=== PATIENT | female | born 1960 | race Caucasian/White ===

== ENCOUNTER 2019-09-18 14:17 | Emergency (ER) | payer OTHER ==
[~2019-09-18] VITALS: Ht 160 cm; Wt 68.0 kg
--- NOTE | 2019-09-18 14:20 | NUR ---
Pt placed in bed 4. pt is ambulatory and walked into the ER today.
--- NOTE | 2019-09-18 14:21 | NUR ---
MD Blanco at bedside.
[2019-09-18 14:30] VITALS: BP_SYST 129
[2019-09-18] MEDS ORDERED: NACL 0.9% 1,000 ML IV ONE (14:30)
[2019-09-18] MEDS ORDERED: MORPHINE 4 MG/ML INJ. SYRINGE IVP ONE (14:30)
[2019-09-18] MEDS ORDERED: ONDANSETRON HCL 4 MG/2 ML VIAL IVP ONE (14:30)
[2019-09-18 15:14] LABS: MONOCYTES # (AUTO) 0.6 K/uL (0.0-1.0); NEUTROPHILS # (AUTO) 5.8 K/uL (1.8-7.7); RED BLOOD CELL COUNT(AUTO) 5.16 MIL/uL (4.2-6.2)
[2019-09-18 15:25] LABS: BASOPHILS % (AUTO) 0.5 % (0.0-2.0); EOSINOPHILS % (AUTO) 0.3 % (0.0-4.0); HEMATOCRIT 46.4 % (36-48); HEMOGLOBIN 15.9 g/dL (12.0-16.0); LYMPHOCYTES # (AUTO) 2.5 K/uL (1.0-5.5); LYMPHOCYTES % (AUTO) 27.6 % (20.5-51.5); MEAN CORPUSCULAR HEMOGLOBIN 31 pg (27-31); MEAN CORPUSCULAR HGB CONC 34 % (32-36); MEAN CORPUSCULAR VOLUME 90 fL (79.0-98.0); MONOCYTES % (AUTO) 6.8 % (1.7-9.3); NEUTROPHILS % (AUTO) 64.8 % (40.0-70.0); PLATELET COUNT (AUTO) 266 K/uL (130-430)
[2019-09-18] MEDS ORDERED: KETOROLAC TROMETHAMINE 30 MG VIAL IVP ONE (15:30)
--- NOTE | 2019-09-18 15:41 | NUR ---
Pain medications given. pt lying in bed. HR 50. pt is otherwise stable.
[2019-09-18 15:45] LABS: CALCIUM 9.2 mg/dL (8.4-11.0); CREATININE 0.92 mg/dL (0.55-1.30); POTASSIUM 3.9 mmol/L (3.5-5.1)
[2019-09-18] MEDS ORDERED: KETOROLAC TROMETHAMINE 30 MG VIAL ONE (15:47)
[2019-09-18 15:53] LABS: ALBUMIN 4.1 g/dL (3.4-4.8); TOTAL BILIRUBIN 0.5 mg/dL (0.0-1.0)
[2019-09-18] MEDS ORDERED: ENOXAPARIN SODIUM 60 MG/0.6 ML SYRINGE SUBCUT SCH (16:15)
[2019-09-18] MEDS ORDERED: ENOXAPARIN SODIUM 60 MG/0.6 ML SYRINGE SUBCUT ONE (16:15)
[2019-09-18] MEDS ORDERED: ASPIRIN 325 MG TABLET (ECOTRIN) PO ONE (16:15)
--- NOTE | 2019-09-18 16:17 | NUR ---
pt will be admitted to telemetry. noted
[2019-09-18] MEDS ORDERED: MORPHINE 2 MG/ML INJ. SYRINGE IVP PRN (17:00)
[2019-09-18] MEDS ORDERED: ACETAMINOPHEN 325 MG TABLET PO PRN (17:00)
[2019-09-18] MEDS ORDERED: MORPHINE 4 MG/ML INJ. SYRINGE IVP PRN (17:00)
[2019-09-18] MEDS ORDERED: TEMAZEPAM 15 MG CAPSULE PO PRN (17:15)
[2019-09-18] MEDS ORDERED: ONDANSETRON HCL 4 MG/2 ML VIAL IVP PRN (17:15)
[2019-09-18] MEDS ORDERED: LORazepam 2 MG/ML VIAL IVP ONE (17:45)
[2019-09-18] MEDS ORDERED: MORPHINE 2 MG/ML INJ. SYRINGE IVP ONE (17:45)
--- NOTE | 2019-09-18 17:55 | NUR ---
Patient to be transferred to [facility] 911. Is being transferred due to higher level of care. Receiving facility has accepting physician PA and available space. ER physician has signed transfer form. Patient or responsible green party has agreed to transfer and signed form. Patient belongings inventoried and will be sent with patient. Copy of nursing notes, lab reports, EKG, Physicians Orders and X-rays to be sent with patient. Report called to at receiving facility. Receiving physician is Gustavo. ambulance service has been called for transfer. ETA is 7 minutes.
[2019-09-18 17:56] VITALS: BP_SYST 128
[2019-09-19] MEDS ORDERED: PANTOPRAZOLE SODIUM 40 MG TAB PO SCH ×2 (09:00)
[2019-09-19] MEDS ORDERED: ASPIRIN 81 MG TABLET(ECOTRIN) PO SCH (09:00)
== END 2019-09-18 17:56 | disposition short-term general hospital (02) ==
LOC: SED 14:17
DX: I21.29 ST elevation (STEMI) myocardial infarction involving other sites (principal); Z88.1 Allergy status to other antibiotic agents
CPT/HCPCS: 36415; 71045; 80053; 83036; 84484; 85025; 85379; 93005; 96372; 96374; 96375; 96376; 99285; J1650; J1885; J2060; J2270 ×2; J2405

== ENCOUNTER 2019-10-08 16:41 | Inpatient (IN) | payer OTHER ==
[~2019-10-08] VITALS: Ht 160 cm; Wt 67.6 kg
[2019-10-08 16:41] VITALS: BP_SYST 128
--- NOTE | 2019-10-08 16:41 | NUR ---
Patient triaged and placed in waiting room. VSS and patient appears in no acute distress at this time. Accompanied by FAMILY, awaiting available bed, and MD notified of need for MSE.
[2019-10-08] MEDS ORDERED: MORPHINE 4 MG/ML INJ. SYRINGE IVP ONE (16:53)
[2019-10-08] MEDS ORDERED: NITROGLYCERIN 1 INCH (GM) OINT. TP ONE (16:53)
[2019-10-08 17:34] LABS: BASOPHILS # (AUTO) 0.1 K/uL (0.0-0.2); BASOPHILS % (AUTO) 0.7 % (0.0-2.0); EOSINOPHILS # (AUTO) 0.1 K/uL (0.0-0.4); EOSINOPHILS % (AUTO) 0.7 % (0.0-4.0); HEMATOCRIT 41.2 % (36-48); HEMOGLOBIN 14.1 g/dL (12.0-16.0); LYMPHOCYTES # (AUTO) 1.1 K/uL (1.0-5.5); LYMPHOCYTES % (AUTO) 11.3 % (20.5-51.5); MEAN CORPUSCULAR HEMOGLOBIN 31 pg (27-31); MEAN CORPUSCULAR HGB CONC 34 % (32-36); MEAN CORPUSCULAR VOLUME 91 fL (79.0-98.0); MONOCYTES # (AUTO) 0.5 K/uL (0.0-1.0); MONOCYTES % (AUTO) 5.5 % (1.7-9.3); NEUTROPHILS # (AUTO) 7.7 K/uL (1.8-7.7); NEUTROPHILS % (AUTO) 81.8 % (40.0-70.0); PLATELET COUNT (AUTO) 250 K/uL (130-430); RED BLOOD CELL COUNT(AUTO) 4.54 MIL/uL (4.2-6.2); WHITE BLOOD COUNT (AUTO) 9.4 K/uL (4.8-10.8)
[2019-10-08 17:37] LABS: CALCIUM 9.7 mg/dL (8.4-11.0); CREATININE 0.8 mg/dL (0.55-1.30); POTASSIUM 4.3 mmol/L (3.5-5.1)
[2019-10-08 17:43] LABS: TOTAL BILIRUBIN 0.4 mg/dL (0.0-1.0)
--- NOTE | 2019-10-08 18:00 | NUR ---
ER at bedside examining patient.
[2019-10-08] MEDS ORDERED: ONDANSETRON HCL 4 MG/2 ML VIAL IVP ONE ×2 (18:30→20:15)
--- NOTE | 2019-10-08 18:42 | NUR ---
IV access placed into the left ac in 2 attempts with 22g. Medications given as ordered. pt stated she felt her HR was low and was monitoring it at home. pt recently had a stent placed and is here to check on her HR. pt c/o dizziness and nausea
--- NOTE | 2019-10-08 18:46 | NUR ---
Nitroglycerin held via MD Rehman verbal order, since pt is not having any chest pain.
--- NOTE | 2019-10-08 19:24 | NUR ---
Report to overnight caregiver RN. pt is feeling better she stated. stable on VS>Hr at 55
--- NOTE | 2019-10-08 20:10 | NUR ---
Pt c/o nausea. Dr. Rehman notified.
--- NOTE | 2019-10-08 20:25 | NUR ---
Admit orders received from Dr. Leonel Tobias. Pt informed of POC and she states that she doesn't want to be admitted for 2 or more days. Pt states that she needs time to think about it. Dr. Tobias to be notified.
--- NOTE | 2019-10-08 20:50 | NUR ---
Spoke with Dr. Tobias to inform about pt.'s request to be admitted only as Tele OBs and have ECHO done in AM. Per Dr. Tobias, pt may not be admitted under OBs status. Pt informed and states "I need to think about it."
--- NOTE | 2019-10-08 21:15 | NUR ---
Charge nurse speaks with pt. Pt decides to follow through with Tele admit and POC per Dr. Tobias.
[2019-10-08] MEDS ORDERED: *LOVENOX 1MG/KG Q12H/PHARMACY XX SCH (21:45)
--- NOTE | 2019-10-08 21:58 | NUR ---
Patient will be admitted to care of Dr. Tobias. Admitted to Tele unit. Will go to room 117B. Belongings list completed. Complete and up to date summary report printed. SBAR report to be given at bedside with opportunity for questions.
[2019-10-08] MEDS ORDERED: ASPI-1155 PO (22:00)
[2019-10-08] MEDS ORDERED: TICA90TA PO (22:00)
--- NOTE | 2019-10-08 22:08 | NUR ---
Medication reconciliation completed with information provided by patient. Any prior medication reconciliation on file was reviewed and corrected.
--- NOTE | 2019-10-08 22:08 | NUR ---
Pt to be admitted under the services of Dr. Cloud. Dr. Tobias does not have admit priveledges at this moment.
[2019-10-08] MEDS ORDERED: *LOVENOX 1MG/KG Q12H/PHARMACY XX ONE (22:30)
--- NOTE | 2019-10-08 22:50 | NUR ---
ADMISSION NOTE Received patient from ER via sh[facility]a, received report from BERYL cassidy. Patient admitted with diagnosis of chest pain r/o MA. Patient oriented to hospital routine, call light, toileting and safety-patient verbalized understanding.
[2019-10-08] MEDS ORDERED: ALBUTEROL SULFATE 0.083% 2.5 MG/3 ML VIAL.NEB INH PRN (23:00)
[2019-10-08] MEDS ORDERED: TEMAZEPAM 15 MG CAPSULE PO PRN (23:00)
[2019-10-08] MEDS ORDERED: ENOXAPARIN SODIUM 80 MG/0.8 ML SYRINGE SUBCUT SCH (23:00)
[2019-10-08] MEDS ORDERED: NON-FORMULARY MEDICATION (Ticagrelor (Brilinta) 90 MG) PO SCH (23:00)
[2019-10-08] MEDS ORDERED: METOPROLOL TARTRATE 25 MG TABLET PO ONE (23:15)
[2019-10-08 23:20] VITALS: BP_SYST 135
--- NOTE | 2019-10-08 23:55 | NUR ---
RN ROUNDS/MD Patient aox4, vital signs stable, on room air, denies any chest pain at this time, no nausea or vomiting, patient c/o fo a pounding headache, states her blood pressure is high. SBP is in the 130s. Paged Dr. Cloud, called back and ordered metropolol 25 mg, patient's HR in the 40 and 50s, patient refusing to take metropolol, called back MD and ordered lotensin 5mg, will carry out order.
[2019-10-09] MEDS ORDERED: BENAZEPRIL HCL 10 MG TABLET (LOTENSIN) PO ONE
--- NOTE | 2019-10-09 00:25 | NUR ---
RN ROUNDS Patient awake, sbp remains in the 130s, lotensin 5 mg po given for blood pressure, patient verbalized understanding, patient's son brought home medication of brillinta, patient took a dose of brillinta 90 mg po at 2345. Patient refusing to place brillinta medication with pharmacy, states she wants to keep medication at her bedside and will let nurse know when she takes the medication. Oriented to room and call light for nurse assistance, safety measures in place, will monitor.
[2019-10-09 00:55] VITALS: BP_SYST 126
[2019-10-09 01:00] VITALS: BP_SYST 126
[2019-10-09 01:28] LABS: ALANINE AMINOTRANSFERASE 22 U/L (12-78); ALBUMIN 3.5 g/dL (3.4-4.8); ANION GAP 2 (5-15); ASPARTATE AMINOTRANSFERASE 16 U/L (10-37); CHLORIDE 106 mmol/L (98-107); CREATININE 0.87 mg/dL (0.55-1.30); GLUCOSE 112 mg/dL (70-99); POTASSIUM 4.1 mmol/L (3.5-5.1); SODIUM SERUM 141 mmol/L (136-145); TOTAL BILIRUBIN 0.3 mg/dL (0.0-1.0); UREA NITROGEN, BLOOD 13 mg/dL (8-21)
[2019-10-09 01:29] LABS: GFR AFRICAN AMERICAN 86 mL/min (>90)
--- NOTE | 2019-10-09 02:37 | NUR ---
Consultation Paged Reason for Consultation: Chest Pain rule out [facility] Was consult called: Y Person who was notified: Stacey Consulting Physician: Huber Justice Counter Tender Ordering Physician: Dr. Cloud
--- NOTE | 2019-10-09 02:37 | NUR ---
RN ROUNDS Patient asleep, respirations even and unlabored, vital signs stable, safety measures in place, call light within reach, will monitor.
--- NOTE | 2019-10-09 04:13 | NUR ---
RN ROUNDS Patient continues to sleep, respirations even and unlabored, safety measures in place, call light within reach, will monitor.
--- NOTE | 2019-10-09 06:30 | NUR ---
RN ROUNDS Patient continues to sleep, respirations even and unlabored, remains on room air, needs attended through out the shift, safety measures in place, call light reamins within reach, will monitor until report given to am nurse.
[2019-10-09 07:45] VITALS: BP_SYST 93
--- NOTE | 2019-10-09 07:45 | NUR ---
INITIAL ROUNDS Received pt AAOx4, no s/s resp distress, no c/o chest pain or chest pressure. Plan of care for the day reviewed with pt-pt verbalized her understanding. Pt stated she brought in her own medication called Vipul, this nurse verified the bottle and the dose is 90 mg p.o. BID, the pt takes it for a blood thinner since she had a stent placed on 09/18/19. Pt informed that our process for home medications that we do not carry is to bring the prescription bottle to the pharmacy and have the pharmacist verify the medication then given the medication back with our sticker for scanning. Pt flat out refused and stated "I am not giving my medication to anyone-you can look at it now but you can't have it." Pt stated "I'm going to take this medication now and this evening as ordered by my doctor so the stent keeps working." Will inform transportation engineering technician and MD. Pain management, disease process, skin and safety discussed-teach back done. Call light within reach.
[2019-10-09 08:01] LABS: BASOPHILS % (AUTO) 0.6 % (0.0-2.0); EOSINOPHILS # (AUTO) 0.2 K/uL (0.0-0.4); EOSINOPHILS % (AUTO) 2.6 % (0.0-4.0); HEMATOCRIT 37.6 % (36-48); HEMOGLOBIN 12.9 g/dL (12.0-16.0); LYMPHOCYTES # (AUTO) 2.6 K/uL (1.0-5.5); LYMPHOCYTES % (AUTO) 34.4 % (20.5-51.5); MEAN CORPUSCULAR HEMOGLOBIN 31 pg (27-31); MEAN CORPUSCULAR HGB CONC 34 % (32-36); MEAN CORPUSCULAR VOLUME 91 fL (79.0-98.0); MONOCYTES # (AUTO) 0.7 K/uL (0.0-1.0); MONOCYTES % (AUTO) 9.7 % (1.7-9.3); NEUTROPHILS % (AUTO) 52.7 % (40.0-70.0); PLATELET COUNT (AUTO) 219 K/uL (130-430); RED BLOOD CELL COUNT(AUTO) 4.12 MIL/uL (4.2-6.2); RED CELL DISTRIBUTION WIDTH 13.6 % (9.0-15.0); WHITE BLOOD COUNT (AUTO) 7.6 K/uL (4.8-10.8)
[2019-10-09 08:34] LABS: PHOSPHORUS 4.8 mg/dL (2.7-4.5); THYROID STIMULATING HORMONE 1.72 uIu/mL (0.36-3.74)
[2019-10-09] MEDS: ASPIRIN 81 MG TAB.CHEW PO SCH (08:39)
[2019-10-09] MEDS ORDERED: METOPROLOL TARTRATE 25 MG TABLET PO SCH (09:00)
[2019-10-09] MEDS ORDERED: BENAZEPRIL HCL 10 MG TABLET (LOTENSIN) PO SCH (09:00)
[2019-10-09 09:23] LABS: CHOLESTEROL 143 mg/dL (<200); HDL CHOLESTEROL 52 mg/dL (>55); LDL CHOLESTEROL 77 mg/dL (<100); TRIGLYCERIDES 79 mg/dL (30-150)
--- NOTE | 2019-10-09 09:56 | NUR ---
Nutrition Update Mg Scale 18 noted. Pt admitted for chest pain and r/o DE. Diet: 2 gm Na BMI: 26.4 kg/m2 RD to follow per nutrition care standards.
[2019-10-09 10:12] LABS: INR 1.1 (0.8-1.2); PROTHROMBIN TIME 10.6 SECS (9.5-12.5)
--- NOTE | 2019-10-09 10:13 | NUR ---
ROUNDS Pt resting quietly with no s/s resp distress, no c/o chest pain or chest pressure. No further c/o dizziness. Needs met, call light within reach.
[2019-10-09 11:30] VITALS: BP_SYST 95
--- NOTE | 2019-10-09 13:17 | NUR ---
ROUNDS/MD/PHARM Pt sitting up in bed eating her lunch. No c/o chest pain or chest pressure, no s/s resp distress. Pt seen by Dr. Cloud, asked him about pt taking the Lovenox with the pt's Brilinta-he stated to check with Dr. Tobias the quality control expert. MD aware of pt's c/o dizziness-order for CT Head placed by MD. Pt seen by Darnell the hospital's pharmacist and pt's Brilinta discussed-per Darnell we do have some in stock and will give the medication as ordered by MD. Needs met, Call light within reach.
--- NOTE | 2019-10-09 16:15 | NUR ---
ROUNDS Pt sitting up in bed with no s/s resp distress, no c/o chest pain or chest pressure, no c/o headache or dizziness at this time.
[2019-10-09 16:44] VITALS: BP_SYST 95
--- NOTE | 2019-10-09 18:45 | NUR ---
CLOSING NOTE Pt sitting up in bed watching television. No s/s resp distress, no c/o chest pain or chest pressure. Still c/o dizziness at times. Pt seen by Dr. Leonel Tobias-order given to ALINA Ananyajordan. Needs met, call light within reach.
--- NOTE | 2019-10-09 19:30 | NUR ---
Opening notes Pt AAOx4, VSS. Pt denies any chest pain or dizziness at this time. No s/s distress noted. IV saline lock L. FA 22G clear and patent. Call light within reach. Bed low, locked, siderails up x2. To monitor.
[2019-10-09 20:38] VITALS: BP_SYST 95
[2019-10-09] MEDS: TICAGRELOR 90 MG TABLET PO SCH (20:41)
[2019-10-09] MEDS ORDERED: *LOVENOX 1MG/KG Q12H/PHARMACY XX SCH (21:00)
--- NOTE | 2019-10-10 00:04 | NUR ---
Rounds Pt asleep, easily arousable. VSS, pt denies any pain or dizziness at this time. Call light within reach. To monitor.
[2019-10-10 00:07] VITALS: BP_SYST 90
--- NOTE | 2019-10-10 04:10 | NUR ---
Rounds Pt asleep. No s/s distress or discomfort noted. Safety maintained. Call light within reach. To monitor.
--- NOTE | 2019-10-10 06:12 | NUR ---
Closing notes Pt asleep, easily arousable. No s/s distress or discomfort noted. Saline lock left FA 22G clear and patent. Call light within reach. Safety maintained. To endorse to AM nurse.
--- NOTE | 2019-10-10 07:55 | NUR ---
opening note patient is resting in bed, alert and oriented, educated transitions rn care coordinator light system and plan of care, patient verbalized understanding, no signs of distress at this time, no other needs addressed at this time, fall/safety precautions in place, IV dressing intact and no IV fluids running for her.
[2019-10-10 08:11] VITALS: BP_SYST 100
[2019-10-10] MEDS: ASPIRIN 81 MG TAB.CHEW PO SCH (08:17)
[2019-10-10] MEDS: TICAGRELOR 90 MG TABLET PO SCH (08:18)
--- NOTE | 2019-10-10 10:40 | NUR ---
rounds patient is resting in bed, eyes closed breathing easy and nonlabored, no needs at this time, fall/safety precautions in place.
[2019-10-10 12:10] VITALS: BP_SYST 109
--- NOTE | 2019-10-10 12:22 | NUR ---
patient requested to have IV removed patient is resting in bed, Dr Tobias informed me that he has cleared her for discharge, will let Dr Cloud know when he comes, patient requested to have IV removed even when I informed her about the benefits of waiting until she gets discharged, she verbalized understanding but still wanted it out, brought her her lunch, no other needs at this time, fall/safety precautions in place.
[2019-10-10 12:57] VITALS: BP_SYST 109
== END 2019-10-10 14:10 | disposition home or self-care (01) | DRG 313 ==
LOC: SED 16:41 → STU 22:00
PROVIDERS: ADMIT Internal Medicine; ATTEND Internal Medicine
DX: R07.89 Other chest pain (principal); I25.10 Atherosclerotic heart disease of native coronary artery without angina pectoris; I25.2 Old myocardial infarction; Z90.710 Acquired absence of both cervix and uterus; Z95.5 Presence of coronary angioplasty implant and graft; Z88.2 Allergy status to sulfonamides; Z79.82 Long term (current) use of aspirin; Z79.899 Other long term (current) drug therapy
CPT/HCPCS: 36415; 70450-TC; 71045; 80053; 80061; 83735-TC; 83880; 84100-TC; 84443-TC; 84484; 85025; 85610-TC; 87081; 93005; 93306; 96374; 96375; 96376; 99291; G0378; J2270; J2405